=== PATIENT | female | born 1935 | race Caucasian/White ===

== ENCOUNTER 2020-09-13 09:58 | Inpatient (IN) ==
[2020-09-13 11:01] LABS: Basophils # 0.1 10*3/uL (0.0-0.2); Eosinophils # 0.1 10*3/uL (0.0-0.87); Hematocrit 42.4 VOL% (35.7-47.0); Hemoglobin 13.3 GM/DL (12.0-16.0); Immature Granulocytes % 0.3 %; Immature Granulocytes Absolute 0.03 #; Lymphocytes # 1.3 10*3/uL (1.4-4.0); Mean Corpuscular HGB Conc 31.4 GM/DL (32-36); Mean Corpuscular Volume 86.4 FL (87-102); Mean Platelet Volume 10.4 FL (9.6-12.0); Monocytes % 5.6 % (1.7-12.7); Neutrophils % 78.1 % (38.7-73.9); Platelet Count 265 T/CUMM (130-400); Red Blood Count 4.91 MC/CUMM (3.8-5.5); Red Cell Distribution Width 13.6 % (9.3-17.3); White Blood Count 8.9 T/CUMM (4-12)
[2020-09-13 11:05] LABS: Albumin 3.5 G/DL (3.4-5.0); Bilirubin,Total 0.4 MG/DL (0.2-1.0); Calcium 9.9 MG/DL (8.5-10.1); Osmolality,Calculated 282.3 MOS/KG (273-304); Potassium 3.5 MMOL/L (3.5-5.1); Total Protein 7.7 G/DL (5.0-7.5)
[2020-09-13 11:23] LABS: PT Patient Result 11.2 SECS (9.8-11.9)
[2020-09-13] MEDS ORDERED: ACETAMINOPHEN 325 MG TABLET PO PRN (11:37)
[2020-09-13] MEDS ORDERED: ONDANSETRON 4 MG/2 ML VIAL IV PRN (11:37)
[2020-09-13] MEDS ORDERED: GLUCAGON 1 MG VIAL IM PRN (13:00)
[2020-09-13] MEDS ORDERED: hydrALAZINE 20 MG/1 ML VIAL IV PRN (13:00)
[2020-09-13] MEDS ORDERED: DEXTROSE 50% 25 GM/50 ML VIAL IV PRN (13:00)
[2020-09-13] MEDS ORDERED: METOPROLOL TARTRATE 5 MG/5 ML VIAL IV PRN (14:17)
[2020-09-13] MEDS ORDERED: METOPROLOL TARTRATE 5 MG/5 ML VIAL IV ONE (14:17)
[2020-09-13 17:42] LABS: Bacteria,Urine Many /HPF (Few); Bilirubin,Urine Negative (Negative); Blood, Urine Small mg/dL (Negative); Glucose,Urine (UA) Negative (Negative); Granular Casts,Urine 6 /LPF (0-1); Hyaline Casts,Urine 2 /LPF (0-3); Ketones,Urine Negative (Negative); Mucus,Urine Occasional /LPF (Occasional); Nitrite,Urine Positive (Negative); Protein,Urine 30 MG/DL; RBC,Urine 1 /HPF (0-4); Squamous Epithelial Cell,Urine Occasional /HPF (0-10); Urine Appearance Slightly Hazy (Clear); Urine Color Yellow (Yellow); Urine Specific Gravity 1.014 (1.001-1.035); Urine Urobilinogen < 2.0 EU/DL (0.2-1.0); WBC,Urine 25 /HPF (0-6)
[2020-09-13] MEDS: DOCUSATE SODIUM 100 MG CAPSULE PO SCH (20:50)
[2020-09-13] MEDS: APIXABAN 5 MG TABLET PO SCH (20:51)
[2020-09-13] MEDS: POTASSIUM CHLORIDE 20 MEQ TABLET PO SCH (20:51)
[2020-09-13] MEDS: ASCORBIC ACID 500 MG TABLET PO SCH (20:51)
[2020-09-13] MEDS: METOPROLOL SUCCINATE XL 25 MG TABLET PO SCH (20:51)
[2020-09-14 06:09] LABS: Basophils # 0.1 10*3/uL (0.0-0.2); Basophils % 1.6 % (0.0-0.8); Eosinophils # 0.2 10*3/uL (0.0-0.87); Eosinophils % 2.3 % (0.00-10.9); Hematocrit 38.8 VOL% (35.7-47.0); Hemoglobin 12.2 GM/DL (12.0-16.0); Immature Granulocytes % 0.4 %; Immature Granulocytes Absolute 0.03 #; Lymphocytes # 1.8 10*3/uL (1.4-4.0); Lymphocytes % 22.5 % (21.3-54.2); Mean Corpuscular HGB Conc 31.4 GM/DL (32-36); Mean Platelet Volume 10.6 FL (9.6-12.0); Monocytes % 6.7 % (1.7-12.7); Neutrophils % 66.5 % (38.7-73.9); Platelet Count 248 T/CUMM (130-400); Red Blood Count 4.51 MC/CUMM (3.8-5.5); Red Cell Distribution Width 13.7 % (9.3-17.3); White Blood Count 7.9 T/CUMM (4-12)
[2020-09-14 06:32] LABS: Calcium 8.8 MG/DL (8.5-10.1); Osmolality,Calculated 285.1 MOS/KG (273-304); Potassium 4.1 MMOL/L (3.5-5.1); Risk Ratio 2.7; VLDL CHOLESTEROL 15.4 MG/DL
[2020-09-14] MEDS: ASPIRIN EC 81 MG TABLET PO SCH (08:20)
[2020-09-14] MEDS: METOPROLOL SUCCINATE XL 25 MG TABLET PO SCH (08:20)
[2020-09-14] MEDS: APIXABAN 5 MG TABLET PO SCH ×2 (08:20→21:42)
[2020-09-14] MEDS: DOCUSATE SODIUM 100 MG CAPSULE PO SCH ×2 (08:20→21:42)
[2020-09-14] MEDS: POTASSIUM CHLORIDE 20 MEQ TABLET PO SCH ×2 (08:20→21:42)
[2020-09-14] MEDS: ASCORBIC ACID 500 MG TABLET PO SCH ×2 (08:20→21:42)
[2020-09-14] MEDS: PANTOPRAZOLE 40 MG TABLET PO SCH (08:21)
[2020-09-14] MEDS: METOPROLOL SUCCINATE XL 50 MG TABLET PO SCH ×2 (08:34→21:41)
[2020-09-14] MEDS ORDERED: CLOPIDOGREL 75 MG TABLET PO SCH (09:00)
[2020-09-14] MEDS ORDERED: ASPIRIN 325 MG TABLET PO SCH (09:00)
[2020-09-14] MEDS ORDERED: METOPROLOL SUCCINATE XL 25 MG TABLET PO SCH (09:00)
[2020-09-14] MEDS ORDERED: amLODIPine 2.5 MG TABLET PO SCH (09:00)
[2020-09-14] MEDS: DILTIAZEM INJ 100 MG in SODIUM CHLORIDE 0.9% 100 ML IV SCH (10:25)
[2020-09-14] MEDS: CIPROFLOXACIN INJ 400 MG in PREMIX 1 EACH IV SCH (13:21)
[2020-09-14] MEDS: AMIODARONE 200 MG TABLET PO SCH ×2 (13:21→21:42)
[2020-09-14] MEDS ORDERED: SIMVASTATIN 40 MG TABLET PO SCH (21:00)
[2020-09-14] MEDS ORDERED: SIMVASTATIN 10 MG TABLET PO SCH (21:00)
[2020-09-15] MEDS: CIPROFLOXACIN INJ 400 MG in PREMIX 1 EACH IV SCH ×2 (01:47→12:48)
[2020-09-15 05:19] LABS: Basophils # 0.1 10*3/uL (0.0-0.2); Eosinophils # 0.2 10*3/uL (0.0-0.87); Hematocrit 36.3 VOL% (35.7-47.0); Hemoglobin 11.7 GM/DL (12.0-16.0); Immature Granulocytes % 0.4 %; Immature Granulocytes Absolute 0.03 #; Lymphocytes % 24.9 % (21.3-54.2); Mean Corpuscular HGB Conc 32.2 GM/DL (32-36); Mean Corpuscular Volume 84.6 FL (87-102); Mean Platelet Volume 10.7 FL (9.6-12.0); Monocytes % 8.8 % (1.7-12.7); Neutrophils % 62.9 % (38.7-73.9); Platelet Count 225 T/CUMM (130-400); Red Blood Count 4.29 MC/CUMM (3.8-5.5); Red Cell Distribution Width 13.8 % (9.3-17.3); White Blood Count 7.9 T/CUMM (4-12)
[2020-09-15 05:46] LABS: Calcium 8.8 MG/DL (8.5-10.1); Osmolality,Calculated 280.5 MOS/KG (273-304); Potassium 4.2 MMOL/L (3.5-5.1)
[2020-09-15] MEDS ORDERED: DIGOXIN 0.5 MG/2 ML AMP IV ONE ×2 (07:01→12:00)
[2020-09-15] MEDS: ASCORBIC ACID 500 MG TABLET PO SCH (08:37)
[2020-09-15] MEDS: ASPIRIN EC 81 MG TABLET PO SCH (08:37)
[2020-09-15] MEDS: APIXABAN 5 MG TABLET PO SCH (08:37)
[2020-09-15] MEDS: POTASSIUM CHLORIDE 20 MEQ TABLET PO SCH (08:38)
[2020-09-15] MEDS: PANTOPRAZOLE 40 MG TABLET PO SCH (08:38)
[2020-09-15] MEDS: AMIODARONE 200 MG TABLET PO SCH (08:38)
[2020-09-15] MEDS: METOPROLOL SUCCINATE XL 50 MG TABLET PO SCH (08:38)
[2020-09-15] MEDS: DOCUSATE SODIUM 100 MG CAPSULE PO SCH (08:38)
[2020-09-15] MEDS: DILTIAZEM INJ 100 MG in SODIUM CHLORIDE 0.9% 100 ML IV SCH (11:45)
[2020-09-15 11:52] VITALS: BP 116/65
[2020-09-15] MEDS ORDERED: SIMVASTATIN 10 MG TABLET PO SCH (21:00)
== END 2020-09-15 15:57 | disposition home or self-care (01) | DRG 65 ==
LOC: N.ED 09:58 → N.EDINP 09:58 → N.TELES 13:20
PROVIDERS: ADMIT Internal Medicine Geriatric Medicine; ATTEND Internal Medicine Geriatric Medicine

== ENCOUNTER 2020-11-15 13:31 | Inpatient (IN) ==
[2020-11-15] MEDS ORDERED: SODIUM CHLORIDE 0.9% 1,000 ML IV STA (15:57)
[2020-11-15 16:49] LABS: Bacteria,Urine Many /HPF (Few); Bilirubin,Urine Negative (Negative); Blood, Urine Negative (Negative); Glucose,Urine (UA) Negative (Negative); Ketones,Urine Negative (Negative); Mucus,Urine Few /LPF (Occasional); Nitrite,Urine Negative (Negative); Protein,Urine Negative; RBC,Urine 1 /HPF (0-4); Squamous Epithelial Cell,Urine Few /HPF (0-10); Urine Appearance Slightly Hazy (Clear); Urine Color Yellow (Yellow); Urine Specific Gravity 1.016 (1.001-1.035)
[2020-11-15 16:53] LABS: Basophils # 0.1 10*3/uL (0.0-0.2); Basophils % 1.3 % (0.0-0.8); Eosinophils # 0.2 10*3/uL (0.0-0.87); Eosinophils % 2.6 % (0.00-10.9); Immature Granulocytes % 0.6 %; Immature Granulocytes Absolute 0.04 #; Lymphocytes # 1.8 10*3/uL (1.4-4.0); Lymphocytes % 26.5 % (21.3-54.2); Mean Corpuscular HGB Conc 29.3 GM/DL (32-36); Mean Corpuscular Volume 80.9 FL (87-102); Mean Platelet Volume 11.4 FL (9.6-12.0); Monocytes % 7.5 % (1.7-12.7); Neutrophils % 61.5 % (38.7-73.9); Platelet Count 303 T/CUMM (130-400); Red Blood Count 2.78 MC/CUMM (3.8-5.5); Red Cell Distribution Width 15.4 % (9.3-17.3); White Blood Count 6.8 T/CUMM (4-12)
[2020-11-15 17:10] LABS: Albumin 3.3 G/DL (3.4-5.0); Bilirubin,Total 0.6 MG/DL (0.2-1.0); Osmolality,Calculated 278.7 MOS/KG (273-304); Potassium 4.6 MMOL/L (3.5-5.1); Total Protein 6.5 G/DL (6.4-8.2)
[2020-11-15 17:13] LABS: Hematocrit 22.5 VOL% (35.7-47.0); Hemoglobin 6.6 GM/DL (12.0-16.0)
[2020-11-15] MEDS ORDERED: cefTRIAXone 1,000 MG in SODIUM CHLORIDE 0.9% 100 ML IV STA (17:23)
[2020-11-15] MEDS ORDERED: cefTRIAXone 1,000 MG VIAL ONE (17:35)
[2020-11-15] MEDS ORDERED: GLUCAGON 1 MG VIAL IM PRN (17:40)
[2020-11-15] MEDS ORDERED: hydrALAZINE 20 MG/1 ML VIAL IV PRN (17:40)
[2020-11-15] MEDS ORDERED: DEXTROSE 50% 25 GM/50 ML VIAL IV PRN (17:40)
[2020-11-15] MEDS ORDERED: ONDANSETRON 4 MG/2 ML VIAL IV PRN (17:40)
[2020-11-15] MEDS ORDERED: SODIUM CHLORIDE 0.9% 1,000 ML IV PRN (17:49)
[2020-11-15 20:46] LABS: Hematocrit 21.4 VOL% (35.7-47.0); Hemoglobin 6.2 GM/DL (12.0-16.0)
[2020-11-15] MEDS: PANTOPRAZOLE 40 MG VIAL IV SCH (22:06)
[2020-11-15] MEDS: SODIUM CHLORIDE 0.9% 1,000 ML IV SCH (22:13)
[2020-11-16] MEDS: SODIUM CHLORIDE 0.9% 1,000 ML IV SCH (06:08)
[2020-11-16 07:54] LABS: Basophils # 0.1 10*3/uL (0.0-0.2); Basophils % 1.2 % (0.0-0.8); Immature Granulocytes % 0.4 %; Immature Granulocytes Absolute 0.03 #
[2020-11-16 08:04] LABS: Eosinophils # 0.2 10*3/uL (0.0-0.87); Hematocrit 27.4 VOL% (35.7-47.0); Lymphocytes # 1.3 10*3/uL (1.4-4.0); Lymphocytes % 17.4 % (21.3-54.2); Mean Corpuscular HGB Conc 30.3 GM/DL (32-36); Mean Platelet Volume 11.2 FL (9.6-12.0); Monocytes % 6.5 % (1.7-12.7); Neutrophils % 71.5 % (38.7-73.9); Platelet Count 257 T/CUMM (130-400); Red Cell Distribution Width 15.5 % (9.3-17.3); White Blood Count 7.3 T/CUMM (4-12)
[2020-11-16 08:06] LABS: Hemoglobin 8.3 GM/DL (12.0-16.0)
[2020-11-16 08:13] LABS: Calcium 8.3 MG/DL (8.5-10.1); Osmolality,Calculated 282.1 MOS/KG (273-304); Potassium 4.1 MMOL/L (3.5-5.1)
[2020-11-16 09:07] LABS: Hematocrit 30.2 VOL% (35.7-47.0)
[2020-11-16] MEDS: PANTOPRAZOLE 40 MG VIAL IV SCH ×2 (09:17→21:12)
[2020-11-16] MEDS ORDERED: cefTRIAXone 1,000 MG in SODIUM CHLORIDE 0.9% 100 ML IV SCH (17:30)
[2020-11-17] MEDS: SODIUM CHLORIDE 0.9% 1,000 ML IV SCH ×2 (03:31→06:31)
[2020-11-17 05:27] LABS: Basophils # 0.1 10*3/uL (0.0-0.2); Eosinophils # 0.3 10*3/uL (0.0-0.87); Eosinophils % 3.7 % (0.00-10.9); Hematocrit 27.4 VOL% (35.7-47.0); Hemoglobin 8.5 GM/DL (12.0-16.0); Immature Granulocytes % 0.6 %; Immature Granulocytes Absolute 0.05 #; Lymphocytes # 1.2 10*3/uL (1.4-4.0); Lymphocytes % 14.6 % (21.3-54.2); Mean Corpuscular Volume 81.1 FL (87-102); Mean Platelet Volume 11.4 FL (9.6-12.0); Monocytes % 7.1 % (1.7-12.7); Platelet Count 240 T/CUMM (130-400); Red Blood Count 3.38 MC/CUMM (3.8-5.5); Red Cell Distribution Width 15.6 % (9.3-17.3); White Blood Count 8.4 T/CUMM (4-12)
[2020-11-17 05:47] LABS: Calcium 8.1 MG/DL (8.5-10.1); Osmolality,Calculated 282.1 MOS/KG (273-304)
[2020-11-17] MEDS: PANTOPRAZOLE 40 MG VIAL IV SCH (09:14)
[2020-11-17 11:49] VITALS: BP 126/47
== END 2020-11-17 15:45 | disposition home or self-care (01) | DRG 813 ==
LOC: N.ED 13:31 → N.EDINP 17:40 → N.3E 20:14
PROVIDERS: ADMIT Emergency Medicine; ATTEND Emergency Medicine

== ENCOUNTER 2022-07-24 15:41 | Observation (INO) ==
[2022-07-24 19:39] LABS: Basophils # 0.1 10*3/uL (0.0-0.2); Basophils % 1.8 % (0.0-0.8); Eosinophils # 0.1 10*3/uL (0.0-0.87); Eosinophils % 2.9 % (0.00-10.9); Hematocrit 22.3 VOL% (35.7-47.0); Hemoglobin 6.5 GM/DL (12.0-16.0); Immature Granulocytes % 0.4 %; Immature Granulocytes Absolute 0.02 #; Lymphocytes # 1.7 10*3/uL (1.4-4.0); Lymphocytes % 34.6 % (21.3-54.2); Mean Corpuscular HGB Conc 29.1 GM/DL (32-36); Mean Corpuscular Volume 81.4 FL (87-102); Mean Platelet Volume 10.8 FL (9.6-12.0); Monocytes # 0.5 10*3/uL (0.11-0.8); Monocytes % 10.2 % (1.7-12.7); Neutrophils % 50.1 % (38.7-73.9); Platelet Count 255 T/CUMM (130-400); Red Blood Count 2.74 MC/CUMM (3.8-5.5); Red Cell Distribution Width 16.8 % (9.3-17.3); White Blood Count 4.9 T/CUMM (4-12)
[2022-07-24 19:59] LABS: Alanine Aminotransferase 14 U/L (13-56); Albumin 3.2 G/DL (3.4-5.0); Alkaline Phosphatase 63 U/L (45-117); Aspartate Amino Transferase 15 U/L (0-37); Bilirubin,Total < 0.39 MG/DL (0.20-1.00); Blood Urea Nitrogen 19 MG/DL (7-18); Calcium 8.7 MG/DL (8.5-10.1); Carbon Dioxide 29 MMOL/L (21-32); Chloride 108 MMOL/L (98-107); Glucose 99 MG/DL (74-106); Osmolality,Calculated 280.4 MOS/KG (273-304); Potassium 4.3 MMOL/L (3.5-5.1); Sodium 140 MMOL/L (136-145); Total Protein 6.3 G/DL (6.4-8.2)
[2022-07-24 21:11] LABS: PT Patient Result 11.4 SECS (10.1-12.1); Partial Thromboplastin Time 20.3 SECS (23.7-32.9)
[2022-07-24] MEDS ORDERED: SODIUM CHLORIDE 0.9% 1,000 ML IV PRN (22:32)
[2022-07-25 07:08] LABS: Basophils # 0.1 10*3/uL (0.0-0.2); Basophils % 1.8 % (0.0-0.8); Eosinophils # 0.1 10*3/uL (0.0-0.87); Eosinophils % 2.6 % (0.00-10.9); Hematocrit 30.4 VOL% (35.7-47.0); Hemoglobin 9.5 GM/DL (12.0-16.0); Immature Granulocytes % 0.4 %; Immature Granulocytes Absolute 0.02 #; Lymphocytes # 1.1 10*3/uL (1.4-4.0); Lymphocytes % 20.7 % (21.3-54.2); Mean Corpuscular HGB Conc 31.3 GM/DL (32-36); Mean Corpuscular Volume 81.5 FL (87-102); Mean Platelet Volume 10.6 FL (9.6-12.0); Monocytes # 0.4 10*3/uL (0.11-0.8); Monocytes % 7.5 % (1.7-12.7); Platelet Count 253 T/CUMM (130-400); Red Blood Count 3.73 MC/CUMM (3.8-5.5); White Blood Count 5.5 T/CUMM (4-12)
[2022-07-25 07:24] LABS: Albumin 3.4 G/DL (3.4-5.0); Bilirubin,Total 1.2 MG/DL (0.20-1.00); Calcium 8.6 MG/DL (8.5-10.1); Osmolality,Calculated 283.1 MOS/KG (273-304); Potassium 4.3 MMOL/L (3.5-5.1); Total Protein 6.7 G/DL (6.4-8.2)
[2022-07-25] MEDS: PANTOPRAZOLE 40 MG VIAL IV SCH ×2 (12:01→20:30)
[2022-07-25] MEDS ORDERED: LIDOCAINE 2% 5 ML VIAL ONE (14:06)
[2022-07-25] MEDS ORDERED: ETOMIDATE 20 MG/10 ML VIAL IV ONE (14:06)
[2022-07-25] MEDS: ACETAMINOPHEN 325 MG TABLET PO PRN (20:28)
[2022-07-25] MEDS ORDERED: ONDANSETRON 4 MG/2 ML VIAL IV PRN (22:08)
[2022-07-26 05:43] LABS: Basophils # 0.1 10*3/uL (0.0-0.2); Basophils % 1.7 % (0.0-0.8); Eosinophils # 0.2 10*3/uL (0.0-0.87); Eosinophils % 2.5 % (0.00-10.9); Hemoglobin 8.6 GM/DL (12.0-16.0); Immature Granulocytes % 0.4 %; Immature Granulocytes Absolute 0.03 #; Lymphocytes # 1.6 10*3/uL (1.4-4.0); Lymphocytes % 20.4 % (21.3-54.2); Mean Corpuscular HGB Conc 29.7 GM/DL (32-36); Mean Corpuscular Volume 84.1 FL (87-102); Mean Platelet Volume 10.9 FL (9.6-12.0); Monocytes # 0.5 10*3/uL (0.11-0.8); Monocytes % 6.8 % (1.7-12.7); Neutrophils % 68.2 % (38.7-73.9); Platelet Count 255 T/CUMM (130-400); Red Blood Count 3.45 MC/CUMM (3.8-5.5); Red Cell Distribution Width 16.4 % (9.3-17.3); White Blood Count 7.6 T/CUMM (4-12)
[2022-07-26 05:51] LABS: Calcium 8.6 MG/DL (8.5-10.1); Osmolality,Calculated 283.1 MOS/KG (273-304); Potassium 3.7 MMOL/L (3.5-5.1)
[2022-07-26 08:24] LABS: % Iron Saturation 4.4 % (18-50); Ferritin 29.6 ng/mL (8-252)
[2022-07-26] MEDS: PANTOPRAZOLE 40 MG VIAL IV SCH ×2 (08:43→21:23)
[2022-07-26] MEDS: SIMVASTATIN 10 MG TABLET PO SCH (21:23)
[2022-07-27] MEDS ORDERED: NITROGLYCERIN SL 0.4 MG TABLET SL PRN (02:22)
[2022-07-27] MEDS ORDERED: MORPHINE 2 MG/1 ML SYRINGE IV PRN (02:22)
[2022-07-27] MEDS ORDERED: NITROGLYCERIN SL 0.4 MG TABLET SL ONE (02:25)
[2022-07-27] MEDS ORDERED: MORPHINE 2 MG/1 ML SYRINGE ONE (02:32)
[2022-07-27] MEDS: ACETAMINOPHEN 325 MG TABLET PO PRN (02:55)
[2022-07-27 03:00] LABS: Basophils # 0.1 10*3/uL (0.0-0.2); Basophils % 0.8 % (0.0-0.8); Eosinophils # 0.1 10*3/uL (0.0-0.87); Eosinophils % 1.3 % (0.00-10.9); Hematocrit 27.5 VOL% (35.7-47.0); Hemoglobin 8.2 GM/DL (12.0-16.0); Immature Granulocytes % 0.4 %; Immature Granulocytes Absolute 0.03 #; Lymphocytes # 0.8 10*3/uL (1.4-4.0); Lymphocytes % 10.1 % (21.3-54.2); Mean Corpuscular HGB Conc 29.8 GM/DL (32-36); Mean Corpuscular Volume 84.4 FL (87-102); Mean Platelet Volume 10.2 FL (9.6-12.0); Monocytes # 0.5 10*3/uL (0.11-0.8); Monocytes % 6.4 % (1.7-12.7); Platelet Count 231 T/CUMM (130-400); Red Blood Count 3.26 MC/CUMM (3.8-5.5); Red Cell Distribution Width 16.7 % (9.3-17.3); White Blood Count 8.2 T/CUMM (4-12)
[2022-07-27 03:16] LABS: Calcium 8.4 MG/DL (8.5-10.1); Osmolality,Calculated 282.4 MOS/KG (273-304); Potassium 3.8 MMOL/L (3.5-5.1)
[2022-07-27] MEDS: AMIODARONE 200 MG TABLET PO SCH (09:40)
[2022-07-27] MEDS: PANTOPRAZOLE 40 MG VIAL IV SCH ×2 (09:40→21:05)
[2022-07-27] MEDS: FERRIC GLUCONATE COMPLEX 125 MG in SODIUM CHLORIDE 0.9% 100 ML IV SCH (14:00)
[2022-07-27 15:22] LABS: Hematocrit 27.9 VOL% (35.7-47.0); Hemoglobin 8.4 GM/DL (12.0-16.0)
[2022-07-27] MEDS: SIMVASTATIN 10 MG TABLET PO SCH (21:02)
[2022-07-28 05:29] LABS: Basophils # 0.1 10*3/uL (0.0-0.2); Basophils % 0.8 % (0.0-0.8); Eosinophils # 0.2 10*3/uL (0.0-0.87); Eosinophils % 3.5 % (0.00-10.9); Hematocrit 29.9 VOL% (35.7-47.0); Hemoglobin 8.8 GM/DL (12.0-16.0); Immature Granulocytes % 0.5 %; Immature Granulocytes Absolute 0.03 #; Lymphocytes # 0.8 10*3/uL (1.4-4.0); Lymphocytes % 12.9 % (21.3-54.2); Mean Corpuscular HGB Conc 29.4 GM/DL (32-36); Mean Corpuscular Volume 84.5 FL (87-102); Mean Platelet Volume 10.8 FL (9.6-12.0); Monocytes # 0.4 10*3/uL (0.11-0.8); Monocytes % 5.7 % (1.7-12.7); Neutrophils % 76.6 % (38.7-73.9); Platelet Count 247 T/CUMM (130-400); Red Blood Count 3.54 MC/CUMM (3.8-5.5); Red Cell Distribution Width 17.1 % (9.3-17.3); White Blood Count 6.4 T/CUMM (4-12)
[2022-07-28 05:55] LABS: Calcium 8.7 MG/DL (8.5-10.1); Osmolality,Calculated 281.3 MOS/KG (273-304); Potassium 3.8 MMOL/L (3.5-5.1)
[2022-07-28] MEDS: AMIODARONE 200 MG TABLET PO SCH (08:24)
[2022-07-28] MEDS: PANTOPRAZOLE 40 MG VIAL IV SCH (08:28)
[2022-07-28] MEDS: FERRIC GLUCONATE COMPLEX 125 MG in SODIUM CHLORIDE 0.9% 100 ML IV SCH (08:28)
[2022-07-28] MEDS ORDERED: ASPIRIN CHEW 81 MG TABLET PO SCH (09:00)
[2022-07-28 11:58] VITALS: BP 120/47
== END 2022-07-28 14:07 | disposition home or self-care (01) ==
LOC: N.ED 15:41 → N.EDINP 22:24 → SUATTDRO 22:24 → INTOOBSV 22:24 → N.3E 07-25 10:15
PROVIDERS: ADMIT Internal Medicine; ATTEND Internal Medicine